=== PATIENT | female | born 1950 | race Caucasian/White ===

== ENCOUNTER 2020-05-01 13:46 | Inpatient (IN) | payer OTHER ==
[~2020-05-01] VITALS: Ht 160 cm; Wt 81.7 kg
[2020-05-01 13:47] VITALS: BP 130/59
[2020-05-01 14:26] LABS: URINE BILIRUBIN NEGATIVE (Negative); URINE BLOOD NEGATIVE (Negative); URINE CLARITY CLEAR; URINE COLOR YELLOW; URINE GLUCOSE-RANDOM* NEGATIVE (Negative); URINE KETONES NEGATIVE (Negative); URINE NITRITE-REFLEX NEGATIVE (Negative); URINE PROTEIN (DIPSTICK) NEGATIVE (Negative); URINE SPECIFIC GRAVITY 1.015 (1.005-1.035); URINE UROBILINOGEN 0.2 E.U./dl (0.2-1.0)
[2020-05-01 14:27] LABS: URINE LEUKOCYTES-REFLEX 1+ (Negative)
[2020-05-01 14:30] LABS: BACTERIA-REFLEX None Seen /HPF (None Seen); CRYSTALS None Seen /LPF (None Seen); SQUAMOUS None Seen /LPF (0-3); URINE RBC None Seen /HPF (0-2); URINE WBC-REFLEX 0-5 Rare /HPF (0-5)
[2020-05-01 14:33] LABS: AMP/METHAMP Negative (Negative); BARBITURATES Negative (Negative); BENZODIAZEPINES Negative (Negative); COCAINE Negative (Negative); METHADONE Negative (Negative); OPIATES Negative (Negative); PCP Negative (Negative)
[2020-05-01 15:39] LABS: ABSOLUTE NEUTROPHILS 2.9 thou/uL (1.4-8.2); BASOPHILS 0.7 % (0.0-2.0); EOSINOPHILS 2.7 % (0.0-3.0); HEMATOCRIT 30.1 % (37.0-47.0); HEMOGLOBIN 10.2 gm/dL (12.0-15.0); LYMPHOCYTES 18.6 % (24.0-44.0); MCH 32.1 pg (26.0-34.0); MCHC 33.9 g/dL (28.0-37.0); MCV 94.7 fL (80.0-100.0); MONOCYTES 12.2 % (1.0-8.0); PLATELET COUNT 113 thou/uL (150-400); POLYS 65.8 % (36.0-66.0); RBC 3.18 mil/uL (4.20-5.00); RDW 16.1 % (10.5-14.5); WBC 4.4 thou/uL (4.0-11.0)
[2020-05-01 16:06] LABS: CALCIUM 8.7 mg/dL (8.5-10.1); POTASSIUM 4.3 mmol/L (3.5-5.1)
[2020-05-01 16:11] LABS: ALBUMIN 2.9 g/dL (3.4-5.0); TOTAL BILIRUBIN 0.4 mg/dL (0.2-1.0); TOTAL PROTEIN 6.3 g/dL (6.4-8.2)
[2020-05-01] MEDS ORDERED: LORATIDINE 10 M10 M1 PO (16:49)
[2020-05-01] MEDS ORDERED: KLOR-CON M2020 MEQ PO (16:55)
[2020-05-01] MEDS ORDERED: LASIX 40 MG TAB40 MG PO (17:01)
[2020-05-01] MEDS ORDERED: COZAAR 25 MG TA25 M1 PO (17:02)
[2020-05-01] MEDS ORDERED: TYLENOL325 MG PO (17:02)
[2020-05-01] MEDS ORDERED: MILK OF MA400 MG/5 M PO (17:09)
[2020-05-02] MEDS ORDERED: OMEPRAZOLE 20 M20 M1 PO (00:36)
[2020-05-02] MEDS ORDERED: CARVEDILOL12.5 MG PO (00:36)
[2020-05-02 06:26] LABS: CALCIUM 8.4 mg/dL (8.5-10.1); CREATININE 1.1 mg/dL (0.6-1.0); POTASSIUM 4.4 mmol/L (3.5-5.1)
[2020-05-02 12:53] VITALS: BP 109/50
[2020-05-02 13:57] VITALS: BP 130/69
--- NOTE | 2020-05-02 19:21 | NUR ---
Admitted from ER with hx of COVID over a month ago. Lives at a [facility] where she has hx of dementia and was making sexual advances toward other residents and using profanity. Alert and orientated X3, unable to give day. Calm, cooperative and compliant. No s/o distress. Does become resistant and slightly agitated when trying to place on commode stating she can't stand and is afraid she is going to fall. Placed on commode multiple times, urinated on linens several times. Obtained consents from DPJEAN Driver who was unable to give much hx except that she had no one else to be DPOA and that she was found lying next to her son in 10/17 where it was believed that he had several days prior to EMS being called. Pt. gave rest of documented med hx some of it saying she was unsure and that I would have to ask questions. Adamantly denies psych hx and SI/HI, was very compliant with questionaires. Breath sounds clear, bilaterally equal, no s/o resp distress. Reg HR auscultated. Color pink with brisk capillary refill and palpable peripheral pulses. +1 edema in lower extremitites. Voiding clear yellow urine per bedpan. Active bowel sounds over soft, rounded abdomen. States she had a BM 1-2 days prior to admission. Unable to obtain wt. or assess gait d/t being unable to stand. Sitting in room watching TV and talking on phone. No s/o distress.
[2020-05-02 20:01] VITALS: BP 138/60
--- NOTE | 2020-05-03 05:28 | NUR ---
Assumed care of pt @ 1900. Pt calm et cooperative most of shift. Took medications whole without difficulty. VSWNL. Health assessment with no abnormalities noted at present time. Denies SI/HI/AVh at present time. Pt was found sitting on the edge of her bed at the end of the bed mid-shift. Pt stated that she had been sitting there all along. Informed pt that she had been up in the bed asleep et pt continued to argue with staff. Convinced pt to scoot back up to head of bed so that she could lie down again. Currently resting in bed with eyes closed. Will continue to monitor per unit protocol.
[2020-05-03 07:30] VITALS: BP 148/62
--- NOTE | 2020-05-03 13:10 | NUR ---
VASCULAR ACCESS CONSULTED FOR ML FOR 1 WEEK ABX. PT'S LABS,MEDS,HX,AND ORDER REVIEWED.DISCUSSED MIDLINE WITH PT AND VERBALIZED AGREEMENT OF LINE. ATTEMPTED DMITRI BASILIC BUT UNABLE TO PASS GUIDEWIRE, SO DMITRI CEPHALIC WIDELY PATENT WITH USG. POWER ML TRIMMED TO 11CM INSERTED TO 0CM WITH BRISK BR,BRUISING AT INSERTION SITE. PT TOLERATED WELL. ML RELEASED FOR IMMEDIATE USE PER PROTOCOL.
[2020-05-03 17:15] VITALS: BP 128/69
--- NOTE | 2020-05-03 19:06 | NUR ---
Alert and orientated. Calm, compliant and cooperative today. Denies SI/HI. Breath sounds clear. Reg HR auscultated. Color pink with brisk capillary refill and palpable peripheral pulses. Minimal edema in lower extremitites. Large amt pale yellow urine t/o day per bedpan and commode. FLOOR CARE SPECIALIST reported she had very large BM today. Active bowel sounds over soft, rounded abdomen. Midline placed per R AC per IV team, dressed with coban, withdraws and flushes without diff. IV antibiotic hung and infusing per pump without diff. Security called in afternoon stating pt had called 911. Pt. states she was trying to call [phone] and made a mistake. Sitting in room without s/o distress.
[2020-05-03 19:29] VITALS: BP 98/55
--- NOTE | 2020-05-04 06:32 | NUR ---
NOTED WITH CONFUSION AND AGITATION. NO IMPULSIVITY. VSS. NO S/S ACUTE DISTRESS NOTED OR REPORTED AT THIS TIME.
[2020-05-04 08:44] VITALS: BP 140/74
--- NOTE | 2020-05-04 16:20 | H ---
[facility] [place] [address] HISTORY AND PHYSICAL Name: DAVID GREWAL Room #: 224-P ADM IN M.R.#: [id number] Admission: 05/01/20 Attend Phys: Manolo Paz DO Discharge: Date of : 50 Report #: [id number] THIS REPORT FOR: cc: Shakir Hyatt MD,Manolo Harper MD, DO ~ CC: Manolo Hyatt DATE OF SERVICE: 05/03/2020 INPATIENT PSYCHIATRIC EVALUATION ATTENDING PHYSICIAN: Manolo Paz DO. TRAVEL PTA: Austin Waterman MD REASON FOR HOSPITALIZATION: Reports psychosis, alleged and inappropriate sexual behavior. SOURCES OF INFORMATION: Chart review and interview with the patient. HISTORY OF PRESENT ILLNESS: A 69-year-old female disabled, comes to the ED from nursing facility, I believe [facility]. She had been reportedly making some inappropriate sexual advances to peers at her facility , concerns things like this. PAST MEDICAL HISTORY: Includes history of a stroke, possible Alzheimer's, glaucoma, osteoarthritis, weakness. MEDICATIONS: Include loratadine 1 tab p.o. daily, potassium chloride 1 tab p.o. daily, furosemide 1 tab p.o. daily, losartan 100 mg p.o. daily, acetaminophen 650 mg p.o. q. 6 p.r.n. for pain, magnesium hydroxide nursing facility MAR. ALLERGIES: IBUPROFEN, LISINOPRIL AND PENICILLIN. SOCIAL HISTORY: Denied tobacco, alcohol or recreational drug use from the ED. REVIEW OF SYSTEMS: CONSTITUTIONAL: Denies fever, chills, malaise, unexplained weight change. EYES: Denies eye pain, visual change or discharge. HENT: Denies hearing changes, ear drainage, ear infections, ear pain, neck pain or neck stiffness. RESPIRATORY: Denies cough, shortness of breath, hemoptysis or respiratory distress. [facility] [address] [place] [address] HISTORY AND PHYSICAL Name: DAVID GREWAL Room #: 224-P ADM IN M.R.#: [id number] Admission: 05/01/20 Attend Phys: Manolo Paz DO Discharge: Date of : 50 Report #: [id number] CARDIOVASCULAR: Denies chest pain, chest pain with exertion or edema. GASTROINTESTINAL: Denies abdominal pain, nausea, vomiting or diarrhea. GENITOURINARY: Denies burning, frequency or dysuria. MUSCULOSKELETAL: Denies back pain, joint pain, muscle weakness or myalgias. SKIN: Denies rash. NEUROLOGIC: Denies weakness, headache, loss of consciousness. Weight 81.65 kilos. Other information from the ED. LABORATORY DATA: Laboratories done there, CBC: H and H 10.2 and 30.1, white count 4.4, platelet count 113. ESR was 40. Chemistries, most recently on 05/02/2020; sodium 140, potassium 4.4, chloride 104, bicarbonate 27, anion gap 9, BUN 37, creatinine 1.1, estimated GFR 49, glucose 85, calcium 8.4. CRP 3.7. Procalcitonin is less than 0.05. Albumin was 2.9, total protein 6.3, AST 17, ALT 12, alkaline phosphatase 72. Those LFT numbers were done on 05/01/2020. Urinalysis was negative except for 1+ leukocyte esterase. Toxicology was negative. Alcohol less than 10. Unfortunately, the patient did have a positive COVID-19 PCR. Her urine culture that was started on 05/01/2020 came back with extended spectrum beta lactamase, resistant E. coli, though the patient has been started on meropenem by the hospitalist. CURRENT MEDICATIONS: Prednisone 40 mg p.o. daily, dexamethasone was discontinued today, Lovenox 40 mg subcutaneous at bedtime, zinc sulfate 220 mg p.o. daily 20 meq Potassium Chloride p.o. daily, loratadine 10 mg p.o. daily, furosemide 40 mg p.o. daily, vitamin C 500 mg p.o. daily, Coreg 12.5 mg p.o. b.i.d., pantoprazole 40 mg p.o. daily, albuterol sulfate 2.5 mg q. 4 p.r.n. shortness of breath. ADDITIONAL HISTORY: The patient was born in [facility], high school graduate, one semester of college. Father of her kids is . She has 2 sons who are , one in the last year or so, one was some time back, one was natural causes, the other not exactly what she describes but it was not mental illness related. 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 I believe the patient was sent from [facility]. Denied physical, sexual or emotional abuse. PHYSICAL EXAMINATION: VITAL SIGNS: Temperature 36.3, pulse 64, respirations 16, BP 140/62, O2 sat 100% on room air. MUSCULOSKELETAL: Lying in bed. Hep-Lock in place, was placed there by vascular access nurse. MENTAL STATUS EXAMINATION: This is a well-developed, fairly nourished female, BMI 31.9, , with fair attention, fair concentration. Speech is normal, rate, rhythm, tone. Thought process is linear and goal directed. [facility] [address] [place] [address] HISTORY AND PHYSICAL Name: DAVID GREWAL Room #: 224-P ADM IN M.R.#: [id number] Admission: 05/01/20 Attend Phys: Manolo Paz DO Discharge: Date of : 50 Report #: [id number] Thought content focused on her family history actually surprisingly not new COVID-19 infection. Denied suicidal or homicidal ideation. No auditory, visual, or tactile hallucinations. Denies nightmares, flashbacks. Memory not formally tested, but suspect some impairment. Insight limited. Judgment limited. Fund of knowledge at least average. FORMULATION: A 69-year-old female sent out from nursing facility. I had made a call this morning to contact her DPOA. It was not answered. I will give that another try. DIAGNOSES: COVID-19 infection, major neurocognitive disorder, suspected unspecified psychosis. PLAN: Evaluate, stabilize, and obtain collateral. With respect to her intermittently seeing visual hallucinations, I will go ahead and start her on 0.5 mg of risperidone twice a day given the prednisone with COVID-19 that is a psychosis generating factor. We will attempt to evaluate, stabilize. Hopefully, if she will not worsen, she will remain on the SICU which is our COVID isolation unit for Behavioral Health patients. elos 10-14 days STRENGTHS: She is insured and the facility has some support that way. WEAKNESSES: Advancing age, multiple morbidities, probably a neurodegenerative disorder. <ELECTRONICALLY SIGNED> By: Manolo Paz DO 05/04/20 1620 [id number] Manolo Paz DO /nt
[2020-05-04 20:24] VITALS: BP 85/54
--- NOTE | 2020-05-05 05:31 | NUR ---
Assumed care of patient this pm shift. Patient in good spirits, calm and cooperative. Patient denies pain. Patient denies hi/si. Patient takes medications whole with thin fluids. Patient is considered a high fall risk. Falls precautions in place. Assessment shows no signs of acute distress. Patient alert and oriented x4. No immediate concerns noted. We will continue to monitor per hospital policy.
[2020-05-05 08:30] VITALS: BP 99/53
[2020-05-05 17:18] VITALS: BP 114/60
--- NOTE | 2020-05-05 18:36 | NUR ---
Assumed care at shift change, alert and oriented x4 and forgetful. Denies SI, BP and HR was low this motning and coreg held per protocol. Assessment as charted, makes her needs known and denies any discomfort and will continue with current POC.
[2020-05-05 19:43] VITALS: BP 98/58
--- NOTE | 2020-05-05 21:03 | NUR ---
Assumed care on 05/05/20 @ 19:30, Covid (+) patient from [facility]. On Room air, Lungs Clear but diminished. HRRR, ABD n x 4Q Denies BM today. A&Ox4 with Confusion. Complains of headache and knee pain, PRN tramadol 50 given for pain. Takes meds whole with water. Will continue to monitor as per [facility] protocol for safety and comfort.
[2020-05-06 05:02] VITALS: BP 98/58
[2020-05-06 05:32] LABS: HEMATOCRIT 31.9 % (37.0-47.0); HEMOGLOBIN 10.9 gm/dL (12.0-15.0); MCH 33.2 pg (26.0-34.0); MCHC 34.2 g/dL (28.0-37.0); RBC 3.28 mil/uL (4.20-5.00); WBC 5.2 thou/uL (4.0-11.0)
[2020-05-06 05:49] LABS: CALCIUM 8.8 mg/dL (8.5-10.1); CREATININE 1.2 mg/dL (0.6-1.0); POTASSIUM 3.9 mmol/L (3.5-5.1)
[2020-05-06 07:40] VITALS: BP 131/67
[2020-05-06 15:06] VITALS: BP 119/55
--- NOTE | 2020-05-06 15:38 | NUR ---
SMALL ENGINE SPECIALIST attempt x2 to call patient's in room phone to complete recreation therapy assessment. No success.
--- NOTE | 2020-05-06 20:06 | NUR ---
COOPERATIVE WITH ALL CARES TODAY-ORIENTED TO PERSON,HOSPITAL,SITUATION AT TIMES TO DATE STATING "MY BIRTHDAY IS IN A DAY OR TWO" ENJOYS VISITING WITH STAFF AND IS MILDLY HYPERVERBAL-STATING TEARFULLY "I AM SO LONLEY CAN YOU STAY IN HERE AND SIT WITH ME" OTTONIEL NOTIFIED AND DID HAVE LONG TELPHONE CONVERSATION WHICH PT LATER REPORTED SHE ENJOYED. APPETITE GOOD TAKES PO FLUIDS WELL AND MEDS WHOLE. NO COUGH NOTED-AFEBRILE AND SATS 98 PERCENT ON RA- MIDLINE SITE FLUSHED -WRAPPED WITH COBAN BUT NO NOTED REDNESS,EDEMA- USES BEDPAN TO VOID-UP TO COMMODE X1 THIS AM WITH ASSISTED 2 STAFF-TOLERATED POORLY BECAME SEVERLY ANXIOUS STATING SEVERAL TIMES I'M FALLING YOU DON'T HAVE ME AND PUSHING AGAINST STAFF" VOIDING WELL PER BEDPAN. DOES REPORT JOINT PAIN MOSLTY SHOULDER,BACK,HIP TRAMADOL 50MG GIVEN PO PRN AT 0900 REPEATED AT 1700-VERBALIZES GOOD RELIEF
--- NOTE | 2020-05-07 03:20 | NUR ---
05-06-20 CARE TRANSFERRED 1900. PT AAOX3, VSS, RR EVEN AND NONLABORED ON RA. PT DENIES SI/HI. ZERO S/S OF ACUTE DISTRESS NOTED. PT REMAINED CALM AND COOPERATIVE. PT WILL CONTINUE TO BE MONITOR PER PROTOCOL.
[2020-05-07 07:15] VITALS: BP 156/86
[2020-05-07 09:06] VITALS: BP 156/86
--- NOTE | 2020-05-07 10:46 | NUR ---
VASCULAR ACCESS CONSULTED TO REPLACE MIDLINE. PT HAD DMITRI BASILIC WIDELY PATENT WITH USG. 4FR POWER ML TRIMMED TO 10CM INSERTED TO 0CM WITH BRISK BR. PT TOLERATED WELL. ML RELEASED FOR IMMEDIATE USE PER PROTOCOL TO RN.
--- NOTE | 2020-05-07 11:46 | NUR ---
JAYDEN called [facility] and spoke with CHEKO Dumont. Julia confirmed she recieved the updates that were faxed on the Pt. Pt d/c set for 05/09/2020 @ 1030am. [facility] will schedule transportation for the Pt.
[2020-05-07] MEDS ORDERED: COZAAR 50 MG TA50 M1 PO (12:52)
[2020-05-07] MEDS ORDERED: RISPERDAL 1 MG T1 MG PO (12:53)
[2020-05-07] MEDS ORDERED: MUCINEX600 MG PO (12:53)
[2020-05-07] MEDS ORDERED: PREDNISONE 20 M20 M1 PO (12:54)
[2020-05-07] MEDS ORDERED: ZINC SULFATE 2220 MG PO (12:54)
[2020-05-07] MEDS ORDERED: VITAMINC500 PO (12:54)
--- NOTE | 2020-05-07 13:10 | NUR ---
Patient discharged from med/surg bed due to requiring psychiatric admission.
== END 2020-05-07 13:12 | DRG 177 ==
LOC: ER 13:46 → EROBS 22:19 → SICU 22:19 → EROBS 22:19 → SICU 05-02 12:53
PROVIDERS: Internal Medicine; Nurse Practitioner Family; Physician Assistant; ADMIT Hospitalist; ATTEND Psychiatry & Neurology Psychiatry
PROC: 05HD33Z Insertion of Infusion Device into Right Cephalic Vein, Percutaneous Approach (ICD-10-PCS; principal; 2020-05-03)
DX: U07.1 COVID-19 (principal); N17.0 Acute kidney failure with tubular necrosis; N39.0 Urinary tract infection, site not specified; Z16.12 Extended spectrum beta lactamase (ESBL) resistance; F02.81 Dementia in other diseases classified elsewhere, unspecified severity, with behavioral disturbance; F01.51 Vascular dementia, unspecified severity, with behavioral disturbance; M19.90 Unspecified osteoarthritis, unspecified site; G30.9 Alzheimer's disease, unspecified; B96.20 Unspecified Escherichia coli [E. coli] as the cause of diseases classified elsewhere; D69.6 Thrombocytopenia, unspecified; D64.9 Anemia, unspecified; I10 Essential (primary) hypertension; K21.9 Gastro-esophageal reflux disease without esophagitis; Z86.73 Personal history of transient ischemic attack (TIA), and cerebral infarction without residual deficits; Z79.899 Other long term (current) drug therapy; Z88.8 Allergy status to other drugs, medicaments and biological substances; Z88.0 Allergy status to penicillin; Z28.21 Immunization not carried out because of patient refusal
CPT/HCPCS: 15000; 27000

== ENCOUNTER 2020-05-07 14:00 | Inpatient (IN) | payer OTHER ==
[~2020-05-07] VITALS: Ht 157.5 cm; Wt 54.4 kg
[~2020-05-07 14:00] MED LIST: CARVEDILOL12.5 MG PO; COZAAR 25 MG TA25 M1 PO; COZAAR 50 MG TA50 M1 PO; KLOR-CON M2020 MEQ PO; LASIX 40 MG TAB40 MG PO; LORATIDINE 10 M10 M1 PO; MILK OF MA400 MG/5 M PO; MUCINEX600 MG PO; OMEPRAZOLE 20 M20 M1 PO; PREDNISONE 20 M20 M1 PO; RISPERDAL 1 MG T1 MG PO; TYLENOL325 MG PO; VITAMINC500 PO; ZINC SULFATE 2220 MG PO
--- NOTE | 2020-05-07 19:54 | NUR ---
69 YEAR OLD FEMALE ADMITTED 05-01-20 TO [facility] FROM [facility] WITH REPORTED INCREASED AGITATION,CONFUSION-REFUSING MEDICATIONS AND FALLING. IDENTIFIED COVID POSISITVE. CALM-COOPERATIVE AND PLEASANT. NO SKIN BREAKDOWN NOTED OR REPORTED-NO COUGH -AFEBRILE-CURRENTLY HAS MIDLINE IV IN UPPER RIGHT ARM C/D AND WRAPPED IN COBAN. O2 SAT 98 PERCENT ON RA-DENIES PAIN-ORIENTED TO PERSON AND PLACE-NO TO DATE-EPISODIC CONFUSION NOTED THROUGHOUT SHIFT WHICH PT MINIMIZES "I JUST TOOK A SNOOZE GOT DISORIENTED ETC" VS STABLE-APPETITE GOOD
[2020-05-08 04:00] VITALS: BP 132/58
--- NOTE | 2020-05-08 06:05 | NUR ---
ASSUMED PT'S CARE BEGINNING OF THIS PM SHIFT. PT ALERT AND ORIENTED. SLEPT WELL THIS SHIFT. VOIDS VIA BEDPAN. PT DECLINED VS BEGINNING OF SHIFT. VSS OBTAINED AT ABOUT 0400 THIS AM. SNACKS PROVIDED TO PT PER PT'S REQUEST. PT VOICED THAT TODAY IS HER BIRTHDAY WHIC IS CORRECT. PT HAS SOME DELUSIONS AND HALLUCINATIONS GOING ON. PT ASKED NURSING WHY NURSING WAS TALKING TO HER BRO. BROTHER NOT IN THE RM. PT VOICED BROTHER'S NAME IS JAKOB AND SAID "LETS LEAVE IT AT THAT". PT CURRENTY IN BED, SLEEPING. WILL CONTINUE TO MONITOR.
[2020-05-08 10:00] VITALS: BP 148/71
[2020-05-08 13:18] VITALS: BP 148/71
--- NOTE | 2020-05-08 13:53 | NUR ---
1450 RESUMMED CARE FROM OVERNIGHT SHIFT THIS AM, PATIENT IN ROOM QUIET WATCHING TV. PATIENTS ABDOMEN SOFT ROUND BOWEL SOUNDS PRESENT LUNGS CLEAR. PATIENT DENIES SI/HI/AH/VH AT PRESENT PATIENT, PATIENT IS PLEASANT AND NEEDY SHE RINGS THE CALL BUTTON EVERY 30 MINUTES. PATIENT AGREED TO SIGN HER HOSPITAL ADMISSION PAPERS. PATIENT EATS AND DRINKS WELL AND TOK MEDICATION WITHOUT INCIDENCE. WILL CONTINUE TO MONITOR PATIENT FOR SAFETY AND BEHAVIORS.
[2020-05-08 21:09] VITALS: BP 117/66
--- NOTE | 2020-05-09 06:04 | NUR ---
ASSUMED PT'S CARE @ ABOUT 1900. ALERT AND ORIENTED X4. SOME CONFUSION. PT SLEPT VERY LITTLE THIS SHIFT. ATTENTION SEEKING. PT CALM AND COOPERATIVE WITH CARE. TOOK MEDS ORDERED. PRN PAIN MED GIVEN THIS SHIFT. DMITRI MIDLINE IV SL. FALL PRECAUTION IN PLACE. CALL LIGHT WITHIN REACH. WILL CONTINUE TO MONITOR.
[2020-05-09 07:53] VITALS: BP 156/71
[2020-05-09 09:10] VITALS: BP 156/71
[2020-05-09] MEDS ORDERED: RISPERDAL 1 MG T1 MG PO (10:06)
[2020-05-09] MEDS ORDERED: K-DUR 20 MEQ T20 MEQ PO (10:06)
--- NOTE | 2020-05-09 12:08 | NUR ---
PATIENT RESTING IN BED COMFORTABLY THIS MORNING. PLEASANT WITH NO BEHAVIORAL DISTURBANCES. MEDICAL STABLE FOR DISHCARGE BACK TO FACILITY. REPORT CALL TO RECIEVING RN. CHART COPY SENT. BELONGING SENT WITH TRANSPORTER. MIDLINE IV DISCONTINUED.
--- NOTE | 2020-05-09 21:36 | H ---
[facility] [place] [address] HISTORY AND PHYSICAL Name: DAVID GREWAL Room #: 224-P DIS IN M.R.#: [id number] Admission: 05/07/20 Attend Phys: Manolo Paz DO Discharge: 05/09/20 Date of : 50 Report #: [id number] THIS REPORT FOR: cc: Shakir Hyatt MD, Srinath MD Kerstein,Manolo Tucker DO ~ DATE OF SERVICE: 05/07/2020 INPATIENT PSYCHIATRIC EVALUATION HISTORY OF PRESENT ILLNESS: The patient is being readmitted today to a psychiatric bed, seen in Behavioral Health Unit due to her COVID-19 positivity. She is being held in room 224. The patient had tested positive for COVID-19 in the ER and she had previously been admitted medically and held in the COVID-19 unit. So, to briefly review the patient's original reason for admission back on 05/01/2020 or so was she was sent out from [facility] for concerns of psychosis, seeing bugs and other things that were not present. She also was allegedly making sexual advances to peers at the facility. She has not done that in the hospital and other than the allegation, I do not have great reliable collateral about that. The patient said in response the allegations that they were ridiculous, bogus. The patient does not like the [facility] Facility, but does not give very specific reasons. ALLERGIES: IBUPROFEN, LISINOPRIL, PENICILLIN. PAST MEDICAL HISTORY: Includes hypertension, GERD, cerebrovascular accident, Alzheimer disease, glaucoma, osteoarthritis, weakness. Denied tobacco, alcohol or recreational drug use. The patient did have a previous psychiatric consultation, I believe, by me and because I was consulted. She denied physical complaints today. Little background I got on her when she was originally admitted, born and raised in the [place] area, high school graduate with one semester of college, all of her kids are . She had 2 sons, who are , one last year or so, one some time back. 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 She denied physical, sexual or emotional abuse. LABORATORY DATA: Most recent laboratories that were done were on 05/06/2020. Hemogram, H and H 10.9 and 31.9, white count 5.2, platelet count 125, so slightly thrombocytopenic and anemic. Coags: She had an elevated D-dimer of 1.32 on 05/05/2020. I checked with the hospitalist on this and with the acute coronavirus syndrome, they are seeing profoundly elevated D-dimers and it essentially is attributed to the viruses interaction with coagulation cascade. Urinalysis on 05/01/2020 was negative except for 1+ leukocyte esterase. Toxicology was negative on 05/01/2020 and as stated, COVID-19 PCR was positive [address] [address] HISTORY AND PHYSICAL Name: DAVID GREWAL Room #: 224-P [facility] IN M.R.#: [id number] Admission: 05/07/20 Attend Phys: Manolo Paz, DO Discharge: 05/09/20 Date of : 50 Report #: [id number] on 05/01/2020. It will be up to infection prevention, Dr. Tate when she was released from the [facility] quarantine. CURRENT MEDICATIONS: She is on zinc sulfate 220 mg p.o. daily that is COVID-19 supplement; potassium chloride 40 mEq p.o. daily; losartan 50 mg p.o. daily, this was recently decreased from [address] Zamora; prednisone 40 mg p.o. daily for COVID-19; pantoprazole 40 mg p.o. daily; risperidone 0.5 mg twice a day at 9 and 9 for psychosis and impulse control; guaifenesin ER 600 mg b.i.d. that is p.r.n. at present, which I believe the hospitalist can change it; carvedilol 12.5 mg at 0900 and 1500 and that should not be given if blood pressure is less than 100 systolic. Otherwise, house PRNs. PHYSICAL EXAMINATION: VITAL SIGNS: Today, BP 120/64. She did have a Hep-Lock in the right antecubital fossa. She was lying in bed. MUSCULOSKELETAL: Gait not tested. GENERAL APPEARANCE: Slightly unkempt. MENTAL STATUS EXAMINATION: This is a well-developed, ill-appearing female, weighing 54.41 kilos, height 157.4 cm, BMI 21.9. The patient is in SICU bed. Attention limited. Concentration limited. Speech is normal rate, volume and tone. Thought process is linear and goal directed. Thought content focused on present, relative poverty of thought. No psychomotor agitation. No psychomotor retardation. Denied suicidal ideations, intent or plan denied homicidal intent or plan. Denied auditory, visual, or tactile hallucinations. Some helplessness, hopelessness. Memory not formally tested, but known to be impaired. Insight limited. Judgment fair to limited. Fund of knowledge diminished. FORMULATION: A 69-year-old female originally admitted from [facility], found to be COVID-19 positive, now being admitted to a psychiatric bed in stable medical bed. DIAGNOSES: At this time, psychosis due to multiple etiologies resolving namely COVID-19 infection, hospital delirium factors, major neurocognitive disorder by history. PLAN: Continue risperidone at this time. The patient is admitted now under a non-DRD hospitalization. Dr. Zamora is consulted. We will plan to discharge the patient back to [facility] this coming , 05/09/2020. STRENGTHS: She is insured, has a positive attitude. [facility] [address] [place] [address] HISTORY AND PHYSICAL Name: DAVID GREWAL Room #: 224-P DIS IN M.R.#: [id number] Admission: 05/07/20 Attend Phys: Manolo Paz DO Discharge: 05/09/20 Date of : 50 Report #: [id number] WEAKNESSES: Instead of family participating, she will be continued full code. <ELECTRONICALLY SIGNED> By: Manolo Paz DO 05/09/20 2136 [id number] [id number] Manolo Paz DO /nt
--- NOTE | 2020-05-14 23:02 | D ---
[facility] [place] [address] DISCHARGE SUMMARY Name: DAVID GREWAL Room #: 224-P [facility] IN M.R.#: [id number] Admission: 05/07/20 Attend Phys: Manolo Paz DO Discharge: 05/09/20 Date of : 50 Report #: [id number] THIS REPORT FOR: cc: Shakir Hyatt MD, Srinath MD Kerstein,Manolo Tucker DO ~ DATE OF SERVICE: 05/09/2020 INPATIENT PSYCHIATRIC DISCHARGE SUMMARY ATTENDING PSYCHIATRIST: Manolo Paz DO. COMPOUNDING TECHNICIAN AT THE TIME OF DISCHARGE: Dr. Zamora. DISCHARGE DIAGNOSES: Major neurocognitive disorder, likely Alzheimer's etiology with behavioral disturbance, improved. Also, unspecified psychosis, improved. Mild infection with COVID-19. Comorbidities are as follows, the patient has thrombocytopenia with platelet count 113, mild anemia, hemoglobin of 10. She has ESBL E. coli UTI. She was treated for a couple of days with meropenem that was discontinued; hypertension complicated by hypotension, so her blood pressures were labile, acute renal failure history secondary to vasomotor nephropathy. She is now off of Lasix. In any event, the patient is discharging to [facility], psychiatric medical care to be provided by receiving facility. DISCHARGE MEDICATIONS: Are as follows, risperidone 0.5 mg p.o. twice per day, potassium chloride 40 mEq p.o. daily, omeprazole 20 mg p.o. daily, Coreg 12.5 mg p.o. b.i.d., watch her blood pressures, losartan 50 mg p.o. daily, zinc sulfate 220 mg p.o. daily for COVID-19, ascorbic acid 500 mg p.o. daily also. LABORATORY DATA: Last hematology was 05/06/2020, H and H 10.9 and 31.0, white count 5.2, platelet count 125, so improved. Sodium 136, potassium 3.9, chloride 102, bicarbonate 27, anion gap 7, BUN 56, creatinine 1.0, estimated GFR 44, glucose 80, calcium 8.8, ferritin 9.3, total bilirubin 0.4, AST 17, ALT 12, alkaline phosphatase 72. Urinalysis, when she was admitted, on medical bed, COVID-19 positive since 05/01/2020. REASON FOR ADMISSION: Initially admitted for psychosis from [facility]. HOSPITAL COURSE: The patient has continued in good spirits. She does have significant physical debility, dementia. She required 24/ care and supervision. CONDITION AT DISCHARGE: Stable. [address] [address] DISCHARGE SUMMARY Name: DAVID GREWAL Room #: 224-P [facility] IN ..#: [id number] Admission: 05/07/20 Attend Phys: Manolo Paz, DO Discharge: 05/09/20 Date of : 50 Report #: [id number] PHYSICAL EXAMINATION: VITAL SIGNS: Today, temperature 36.7, pulse 69, respirations 16, BP 156/71, O2 sat 98% on room air. MUSCULOSKELETAL: Gait not tested, appearing with gross atrophy. MENTAL STATUS EXAMINATION: This is a well-developed, fairly nourished female appearing at least stated age. Attention limited. Concentration limited. Speech is normal rate. Thought process is linear and goal directed. Thought content, variable thinking, some delusional thinking about where she is actually up. Denied SI or HI. Denied auditory, visual, or tactile hallucinations. Mood and affect was euthymic, congruent. Memory not formally tested. Insight limited. Judgment limited. Fund of knowledge is below average. PROGNOSIS: For this patient is guarded given her age, deconditioned physical state, having a neurocognitive disorder. <ELECTRONICALLY SIGNED> By: Manolo Paz DO 05/14/20 2302 [id number] Manolo Paz DO /nt
== END 2020-05-09 12:10 | DRG 56 ==
LOC: SICU 14:00
PROVIDERS: ADMIT Psychiatry & Neurology Psychiatry; ATTEND Psychiatry & Neurology Psychiatry
PROC: 05HD33Z Insertion of Infusion Device into Right Cephalic Vein, Percutaneous Approach (ICD-10-PCS; principal; 2020-05-08)
DX: G30.9 Alzheimer's disease, unspecified (principal); F01.51 Vascular dementia, unspecified severity, with behavioral disturbance; U07.1 COVID-19; N17.0 Acute kidney failure with tubular necrosis; F02.81 Dementia in other diseases classified elsewhere, unspecified severity, with behavioral disturbance; K21.9 Gastro-esophageal reflux disease without esophagitis; I10 Essential (primary) hypertension; M19.90 Unspecified osteoarthritis, unspecified site; D69.6 Thrombocytopenia, unspecified; F29 Unspecified psychosis not due to a substance or known physiological condition; D64.9 Anemia, unspecified; I95.9 Hypotension, unspecified; Z88.6 Allergy status to analgesic agent; Z88.0 Allergy status to penicillin; Z88.8 Allergy status to other drugs, medicaments and biological substances; Z86.73 Personal history of transient ischemic attack (TIA), and cerebral infarction without residual deficits; Z79.899 Other long term (current) drug therapy
CPT/HCPCS: 15000